=== PATIENT | female | born 2005 | race African-American/Black ===

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

== ENCOUNTER 2023-05-26 17:37 | Emergency (ER) | payer MEDICAID, OTHER ==
[~2023-05-26] VITALS: Ht 172.7 cm; Wt 91.0 kg
[2023-05-26 18:03] VITALS: BP 140/99; O2SAT 100
[2023-05-26] MEDS ORDERED: DIPHENHYDRAMINE 50MG CAPSULE PO ONE (18:45)
[2023-05-26] MEDS ORDERED: FAMOTIDINE 20MG TABLET PO ONE (18:45)
[2023-05-26] MEDS ORDERED: PREDNISONE 20MG TABLET PO ONE (18:45)
[2023-05-26] MEDS: DIPHENHYDRAMINE 25MG CAPSULE PO NR ×3 (19:15→20:24)
[2023-05-26] MEDS ORDERED: P50 MT (21:02)
[2023-05-26] MEDS ORDERED: FAMO40TA70 MT (21:02)
[2023-05-26] MEDS ORDERED: OLOP2.5D12 EACHEYE (21:02)
[2023-05-26] MEDS ORDERED: DIPH25CA83 MT (21:02)
[2023-05-26 21:31] VITALS: PULSE 90; RESP 18; TEMP 97.9
== END 2023-05-26 21:32 | disposition home or self-care (01) ==
LOC: ER 17:37
DX: T78.40XA Allergy, unspecified, initial encounter (principal); F32.9 Major depressive disorder, single episode, unspecified; X58.XXXA Exposure to other specified factors, initial encounter
CPT/HCPCS: 99284; Q0163; J7512